=== PATIENT | female | born 1985 | race African-American/Black ===

== ENCOUNTER 2018-06-21 21:23 | Emergency (ER) | payer SELFPAY ==
[~2018-06-21] VITALS: Ht 177.8 cm; Wt 86.2 kg
[2018-06-21 21:49] VITALS: BP 117/76
[2018-06-21] MEDS ORDERED: PREDNISONE20 MG ORAL (21:53)
[2018-06-21] MEDS ORDERED: CALAMINE LOTIO177 ML TP (21:53)
[2018-06-21] MEDS ORDERED: BENADRYL25 MG ORAL (21:53)
--- NOTE | 2018-06-21 21:57 | Emergency Room Report ---
History of Present Illness General Chief Complaint: Skin Rash/Abscess Source: Patient Present Illness HPI Patient presents with complaints of redness and itching to her left leg Reports that she thinks she might have been written by an insect at that time However the area has become more red and the area has enlarged and she was concerning came to the ER Denies any chest pain denies any calf pain denies any fevers or chills denies any other trauma Denies any change with walking or position Allergies: Coded Allergies: No Known Allergies (Unverified , 06/21/18) Patient History Past Medical History: see triage record Pertinent Family History: none Last Menstrual Period: a week ago Now: No Reviewed Nursing Documentation: PMH: Agreed; PSxH: Agreed Nursing Documentation-PMH Past Medical History: No Stated History Review of Systems All Other Systems: negative except mentioned in HPI Physical Exam Vital Signs Date Time Temp Pulse Resp B/P (MAP) Pulse Ox O2 Delivery O2 Flow Rate FiO2 06/21/18 21:26 98.3 71 22 118/77 98 Room Air 98.2 Sp02 EP Interpretation: reviewed, normal General Appearance: well appearing, no apparent distress Head: normocephalic, atraumatic Eyes: bilateral eye PERRL, bilateral eye EOMI ENT: hearing grossly normal, normal pharynx Respiratory: lungs clear Cardiovascular #1: regular rate, rhythm Musculoskeletal: other - Some erythema with a central area of mild raised appearance, lateral proximal fibular area on the left leg, approximately 2 x 3 cm in size, no fluctuance, no streaking no blister formation Neurologic: alert, oriented x3, responsive Skin: other - As above Lymphatic: no adenopathy Medical Decision Making Diagnostic Impression: Primary Impression: Rash and other nonspecific skin eruption Additional Impression: insect bite, local reaction ER Course The area appears to be consistent with likely insect bite With a local reaction I do not appreciate any obvious cellulitis or infection at this time patient will have symptomatic treatment with medication And requires close outpatient follow-up Last Vital Signs Date Time Temp Pulse Resp B/P (MAP) Pulse Ox O2 Delivery O2 Flow Rate FiO2 06/21/18 21:49 98.2 76 22 117/76 98 Room Air 98.2 Status: unchanged Disposition: HOME, SELF-CARE Condition: Stable Scripts Calamine/Zinc Oxide (CALAMINE LOTION*) 177 Ml Suspension 1 APPLIC TP BID for 7 Days, ML 0 Refills Prov: Jamehdor,Ali DO 06/21/18 Prednisone* (PREDNISONE*) 20 Mg Tablet 20 MG ORAL BID, #10 TAB 0 Refills Prov: Arsenio Franklin DO 06/21/18 Diphenhydramine Hcl* (BENADRYL*) 25 Mg Capsule 25 MG ORAL Q6H PRN for Itching for 7 Days, CAP Prov: Arsenio Franklin DO 06/21/18 Referrals: NOT CHOSEN IPA/MD,REFERRING (PCP) Patient Instructions: Insect Bite, [id number] Additional Instructions: Patient is provided with the discharge instructions notified to follow up with primary doctor in the next 2-3 days otherwise return to the er with any worsening symptoms. Please note that this report is being documented using [employer] technology. This can lead to erroneous entry secondary to incorrect interpretation by the dictating instrument. Arsenio Franklin DO Jun 21, 2018 21:56
[2018-06-21 22:00] VITALS: BP 113/74
== END 2018-06-21 22:05 | disposition home or self-care (01) ==
LOC: EMR 21:35
DX: S80.862A Insect bite (nonvenomous), left lower leg, initial encounter (principal); W57.XXXA Bitten or stung by nonvenomous insect and other nonvenomous arthropods, initial encounter; Y93.9 Activity, unspecified; Y92.9 Unspecified place or not applicable
CPT/HCPCS: 99283